=== PATIENT | male | born 1990 | race African-American/Black ===

== ENCOUNTER → 2021-06-24 | Outpatient (CLI) | payer OTHER ==
--- NOTE | 2021-06-24 10:42 | XR ---
EXAM TYPE: LUMBAR SPINE X RAY SERIES COMPARISON: NONE HISTORY: Pain TECHNIQUE: 4 views are submitted. FINDINGS: Alignment is anatomic. The pedicles are intact. The transverse processes are intact. There is no s pondylolysis or spondylolisthesis. Mild hypertrophic change of the facets L4-5 and L5-S1. Spurring i s seen at the thoracolumbar junction. IMPRESSION: 1. No acute process. If symptoms persist or there is concern for disc herniation consider follow-up MRI. 2. Mild hypertrophic changes of the facet facets lower lumbar spine.
[2021-06-24 19:21] LABS: HCT 42.9 % (39.6-50.0); HGB 14.4 g/dL (13.0-17.0); MCH 28.7 pg (27.0-32.0); MCHC 33.6 g/dL (32.0-37.0); MCV 85.5 fL (80.0-97.0); Mean Platelet Volume 9.4 fL (9.5-12.2); Platelet Count 250 X 10*3/uL (140-440); RBC 5.02 X 10*6/uL (4.40-5.60); RDW 12.7 % (11.5-14.5); WBC 7.17 X 10*3/uL (4.50-10.00)
[2021-06-24 19:22] LABS: Basophils # (A) 0.05 X 10*3/uL (0.00-0.10); Basophils % (A) 0.7 %; Eosinophils # (A) 0.22 X 10*3/uL (0.04-0.35); Eosinophils % (A) 3.1 %; Immature Grans, Automated 0.3 %; Lymphocytes # (A) 3.01 X 10*3/uL (0.90-5.00); Monocytes # (A) 0.39 X 10*3/uL (0.20-1.00); Monocytes % (A) 5.4 %; NRBC Per 100 WBC 0 /100 WBCS (0.0-0.0); Neutrophils # (A) 3.48 X 10*3/uL (1.80-7.70); Neutrophils % (A) 48.5 %
[2021-06-24 20:01] LABS: African American GFR (CKD) 115.7 (60.0-200.0); Blood Urea Nitrogen 12.9 mg/dL (9.0-27.0); Carbon Dioxide 25.4 mmol/L (20.0-27.5); Chloride 104 mmol/L (96-109); Glucose 87 mg/dL (70-110); Non-African American GFR(CKD) 99.8 (60.0-200.0); Potassium 4.6 mmol/L (3.5-5.5); Sodium 140 mmol/L (135-145)
[2021-06-24 20:02] LABS: Chol/HDL Ratio 3.77 Ratio; LDL Cholesterol,Calculated 104.4 mg/dL (0.0-131.0); VLDL Calculation 16.06 mg/dL (5.00-40.00)
== END | disposition home or self-care (01) ==
LOC: RADXRMAIN 10:11
PROVIDERS: ATTEND Student in an Organized Health Care Education/Training Program
DX: M47.9 Spondylosis, unspecified (principal)
CPT/HCPCS: 72110; 80048; 80061; 82306; 83036; 85025